=== PATIENT | male | born 1960 | race Caucasian/White ===

== ENCOUNTER → 2018-12-14 | Outpatient (CLI) | payer OTHER, BC ==
--- NOTE | 2018-12-14 12:08 | 2DMMODE ---
[facility] [address] [place] [address] 2 D/M-MODE ECHOCARDIOGRAM Name: RADHATAMMIE ISRAEL Room #: REG [facility]#: [id number] ������������� Admission: 12/14/18 ������������� Attend Phys: Johan Carroll Discharge: ��� ������������� ��� Date of : 58 Date of Service: 12/14/18 1208 �� Report #: [id number] �������� ��������������������������������������������[id number] THIS REPORT FOR: //name// APPROVED REPORT Study performed: 12/14/2018 11:18:12 EXAM: Comprehensive 2D, Doppler, and color-flow Echocardiogram Patient Location: Out-Patient Status: routine BSA: 2.07 HR: 70 bpm BP: 124/70 mmHg Rhythm: Sinus arrhythmia, PVCs Other Information Study Quality: Good Indications Elevated calcium score. Hx: HTN, HLP, DM. 2D Dimensions RVDd: 29.88 mm IVSd: 9.84 (7-11mm) LVOT Diam: 22.09 (18-24mm) LVDd: 49.73 mm PWd: 10.30 (7-11mm) Ascending Ao: 32.96 (22-36mm) LVDs: 25.88 (25-40mm) Aortic Root: 35.33 mm Volumes Left Atrial Volume (Systole) Single Plane 4CH: 44.19 mL Single Plane 2CH: 56.23 mL LA ESV Index: 27.00 mL/m2 Aortic Valve AoV Peak Vinny.: 1.35 m/s AO Peak Gr.: 7.25 mmHg LVOT Max P.84 mmHg LVOT Max V: 1.10 m/s NORMA Vmax: 3.13 cm2 Mitral Valve E/A Ratio: 1.9 MV Decel. Time: 194.80 ms MV E Max Vinny.: 1.15 m/s [facility] [address] [place] [address] 2 D/M-MODE ECHOCARDIOGRAM Name: TAMMIE GARCIA Room #: REG [facility]#: [id number] ������������� Admission: 12/14/18 ������������� Attend Phys: Johan Carroll Discharge: ��� ������������� ��� Date of : 58 Date of Service: 12/14/18 1208 �� Report #: [id number] �������� ��������������������������������������������[id number] MV A Vinny.: 0.61 m/s MV PHT: 56.49 ms IVRT: 73.82 ms Pulmonary Valve PV Peak Vinny.: 1.39 m/s PV Peak Gr.: 7.72 mmHg Pulmonary Vein P Vein S: 0.98 m/s P Vein D: 0.85 m/s P Vein S/D Ratio: 1.15 Tricuspid Valve RAP Estimate: 5.00 mmHg Left Ventricle The left ventricle is normal size. There is normal LV segmental wall motion. There is normal left ventricular wall thickness. Left ventricular systolic function is normal. LVEF is 60-65%. Moderate diastolic dysfunction is present (pseudonormal filling). Right Ventricle The right ventricle is normal size. The right ventricular systolic function is normal. Atria The left atrium size is normal. The right atrium size is normal. Aortic Valve The aortic valve is normal in structure. Trace aortic regurgitation. There is no aortic valvular stenosis. Mitral Valve The mitral valve is normal in structure. There is no mitral valve regurgitation noted. Tricuspid Valve The tricuspid valve is normal in structure. There is no tricuspid valve regurgitation noted. Unable to assess PA pressure. Pulmonic Valve Pulmonic valve is not well visualized. Trace pulmonic regurgitation. Great Vessels [facility] [address] [place] [address] 2 D/M-MODE ECHOCARDIOGRAM Name: TAMMIE GARCIA Room #: REG [facility]#: [id number] ������������� Admission: 12/14/18 ������������� Attend Phys: Johan Carroll Discharge: ��� ������������� ��� Date of : 58 Date of Service: 12/14/18 1208 �� Report #: [id number] �������� ��������������������������������������������[id number] The aortic root is normal in size. The ascending aorta is normal in size. IVC is normal in size and collapses >50% with inspiration. Pericardium There is no pericardial effusion. <Conclusion> The left ventricle is normal size. LVEF is 60-65%. The aortic valve is normal in structure. Trace aortic regurgitation. The mitral valve is normal in structure. The tricuspid valve is normal in structure. There is no tricuspid valve regurgitation noted. Unable to assess PA pressure. Pulmonic valve is not well visualized. Trace pulmonic regurgitation. There is no pericardial effusion. ��������������������������������������������� <ELECTRONICALLY SIGNED> ���������������������������������������� By: Johan Martínez MD ��������������������������������������������� 12/14/188 07 07 Johan Martínez MD /INF
== END ==
LOC: CV 06:39
DX: I25.10 Atherosclerotic heart disease of native coronary artery without angina pectoris (principal); I10 Essential (primary) hypertension; E78.5 Hyperlipidemia, unspecified; E11.9 Type 2 diabetes mellitus without complications; Z79.899 Other long term (current) drug therapy; Z87.891 Personal history of nicotine dependence